=== PATIENT | male | born 1980 | race Caucasian/White ===

== ENCOUNTER 2018-06-12 16:30 | Emergency (ER) | payer MEDICAID ==
[~2018-06-12] VITALS: Ht 182.9 cm; Wt 92.0 kg
[~2018-06-12 16:30] MED LIST: FLO0.4C PO; NO HOME MEDS
[2018-06-12 16:48] VITALS: BP 158/95
[2018-06-12 17:17] LABS: BASOPHILS % (AUTO) 0.1 % (0-1); EOSINOPHILS # (AUTO) 0.1 X10'3 (0-0.9); EOSINOPHILS % (AUTO) 0.9 % (0-6); HEMATOCRIT 51.3 % (42.0-52.0); HEMOGLOBIN 17.7 g/dl (14.0-17.9); LYMPHOCYTES # (AUTO) 2.5 X10'3 (1.1-4.8); LYMPHOCYTES % (AUTO) 26.9 % (21-51); MEAN CORPUSCULAR HEMOGLOBIN 33.2 PG (27.0-31.0); MEAN CORPUSCULAR HGB CONC 34.4 % (33.0-36.5); MEAN CORPUSCULAR VOLUME 96.5 FL (78-98); MEAN PLATELET VOLUME 7.8 FL (7.4-10.4); MONOCYTES # (AUTO) 0.8 X10'3 (0-0.9); MONOCYTES % (AUTO) 8.6 % (2-12); NEUTROPHILS # (AUTO) 5.8 X10'3 (1.8-7.7); NEUTROPHILS % (AUTO) 63.5 % (42-75); PLATELET COUNT 240 X10'3 (140-440); RED BLOOD COUNT 5.32 X10'6 (4.70-6.10); RED CELL DISTRIBUTION WIDTH 15.1 % (11.5-14.5); WHITE BLOOD COUNT 9.2 X10'3 (4.5-11.0)
[2018-06-12 17:32] LABS: ALANINE AMINOTRANSFERASE 102 U/L (12-78); ALBUMIN 4.8 G/DL (3.4-5.0); ALBUMIN/GLOBULIN RATIO 1.1 (1.1-1.5); ALKALINE PHOSPHATASE 64 IU/L (46-116); ANION GAP 16 (8-16); ASPARTATE AMINO TRANSFERASE 56 U/L (10-37); BLOOD UREA NITROGEN 9 MG/DL (7-18); CALCIUM 9.8 MG/DL (8.5-10.1); CHLORIDE 99 MMOL/L (99-107); CREATININE 1.12 MG/DL (0.60-1.10); GLUCOSE 81 MG/DL (70-104); LIPASE 289 U/L (73-393); POTASSIUM 3.2 MMOL/L (3.5-5.1); SODIUM 141 MMOL/L (135-145); TOTAL CARBON DIOXIDE 26.2 MMOL/L (24-32); eGFR 74 ML/MIN
[2018-06-12] MEDS ORDERED: LORA-269 PO (17:41)
[2018-06-18] MEDS ORDERED: ONDA8TAB9 PO (15:40)
== END 2018-06-12 18:08 | disposition home or self-care (01) ==
LOC: ER 16:31
DX: F10.10 Alcohol abuse, uncomplicated (principal); R74.0 Nonspecific elevation of levels of transaminase and lactic acid dehydrogenase [LDH]; Z72.89 Other problems related to lifestyle; F15.90 Other stimulant use, unspecified, uncomplicated; J45.909 Unspecified asthma, uncomplicated; G89.29 Other chronic pain; Z88.1 Allergy status to other antibiotic agents; Z88.8 Allergy status to other drugs, medicaments and biological substances; Z79.899 Other long term (current) drug therapy; Z56.0 Unemployment, unspecified
CPT/HCPCS: 36415; 80053; 83690; 85025; 99284

== ENCOUNTER 2018-06-22 11:20 | Emergency (ER) | payer MEDICAID ==
[~2018-06-22] VITALS: Ht 182.9 cm; Wt 90.0 kg
[~2018-06-22 11:20] MED LIST changes: +LORA-269 PO; +ONDA8TAB9 PO
[2018-06-22 11:40] VITALS: BP 148/91
[2018-06-22] MEDS ORDERED: magnesium citrate 296ml oral solution PO ONE (12:00)
[2018-06-22] MEDS ORDERED: lactulose 20gm/30ml cup PO ONE (12:10)
[2018-06-22] MEDS ORDERED: POLY255P2 PO (12:12)
[2018-06-22] MEDS ORDERED: acetaminophen 325mg tablet PO ONE (12:15)
== END 2018-06-22 12:37 | disposition home or self-care (01) ==
LOC: ER 11:21
DX: K59.00 Constipation, unspecified (principal); J45.909 Unspecified asthma, uncomplicated; G89.29 Other chronic pain; F15.90 Other stimulant use, unspecified, uncomplicated; F17.210 Nicotine dependence, cigarettes, uncomplicated; Z56.0 Unemployment, unspecified; Z87.442 Personal history of urinary calculi; Z87.11 Personal history of peptic ulcer disease; Z88.5 Allergy status to narcotic agent; Z88.8 Allergy status to other drugs, medicaments and biological substances; Z79.899 Other long term (current) drug therapy
CPT/HCPCS: 99284

== ENCOUNTER 2018-07-08 11:08 | Emergency (ER) | payer MEDICAID ==
[~2018-07-08] VITALS: Ht 182.9 cm; Wt 91.8 kg
[~2018-07-08 11:08] MED LIST changes: +POLY255P2 PO
[2018-07-08] MEDS ORDERED: LIDOcaine 1%/PF 5ML 10 MG/ML VIAL IJ ONE (11:30)
[2018-07-08] MEDS ORDERED: CEPH500C5 PO (11:33)
[2018-07-08] MEDS ORDERED: GABA-532 PO (12:10)
[2018-07-08] MEDS ORDERED: MAGN454C TOP (12:14)
[2018-07-08 12:23] VITALS: BP 146/108
== END 2018-07-08 12:24 | disposition home or self-care (01) ==
LOC: ER 11:09
DX: L02.511 Cutaneous abscess of right hand (principal); J45.909 Unspecified asthma, uncomplicated; G89.29 Other chronic pain; F15.90 Other stimulant use, unspecified, uncomplicated; F10.10 Alcohol abuse, uncomplicated; Z86.19 Personal history of other infectious and parasitic diseases; Z56.0 Unemployment, unspecified; Z88.1 Allergy status to other antibiotic agents; Z88.8 Allergy status to other drugs, medicaments and biological substances; Z79.2 Long term (current) use of antibiotics; Z79.899 Other long term (current) drug therapy; Y90.9 Presence of alcohol in blood, level not specified
CPT/HCPCS: 26010; 87070; 87077; 87186; 99284; A6255; A6449; J2001

== ENCOUNTER 2019-04-15 13:16 | Emergency (ER) | payer MEDICAID ==
[~2019-04-15] VITALS: Ht 182.9 cm; Wt 79.5 kg
[~2019-04-15 13:16] MED LIST changes: +CEPH500C5 PO; +GABA-532 PO; +MAGN454C TOP; +POLY255P19 PO; -POLY255P2 PO
[2019-04-15 13:19] VITALS: BP 136/93
== END 2019-04-15 13:36 | disposition home or self-care (01) ==
LOC: ER 13:17
DX: F10.10 Alcohol abuse, uncomplicated (principal); J45.909 Unspecified asthma, uncomplicated; G89.29 Other chronic pain; F41.9 Anxiety disorder, unspecified; F31.9 Bipolar disorder, unspecified; F15.90 Other stimulant use, unspecified, uncomplicated; Z56.0 Unemployment, unspecified; Z86.19 Personal history of other infectious and parasitic diseases; Z87.442 Personal history of urinary calculi; Z88.1 Allergy status to other antibiotic agents; Z88.8 Allergy status to other drugs, medicaments and biological substances; Z79.899 Other long term (current) drug therapy; Y90.9 Presence of alcohol in blood, level not specified
CPT/HCPCS: 99281

== ENCOUNTER 2021-08-02 22:41 | Emergency (ER) | payer MEDICAID ==
[~2021-08-02] VITALS: Ht 182.9 cm; Wt 79.5 kg
[~2021-08-02 22:41] MED LIST changes: -CEPH500C5 PO
[2021-08-02 23:05] VITALS: BP 140/94
[2021-08-03] MEDS ORDERED: LORazepam 1 MG tablet PO ONE (00:10)
[2021-08-03] MEDS ORDERED: CHLO25CA10 PO ×2 (00:11→23:31)
--- NOTE | 2021-08-03 00:41 | NUR ---
pt reports having ores on legs and needs more antibiotics. md mares aware.
[2021-08-03] MEDS ORDERED: QUET200T PO (00:47)
[2021-08-03] MEDS ORDERED: CEPH-585 PO ×2 (00:47→01:02)
[2021-08-03] MEDS ORDERED: QUET400T PO ×2 (01:02→23:31)
== END 2021-08-03 01:00 | disposition home or self-care (01) ==
LOC: ER 22:42
DX: F10.239 Alcohol dependence with withdrawal, unspecified (principal); J45.909 Unspecified asthma, uncomplicated; F31.9 Bipolar disorder, unspecified; G89.29 Other chronic pain; F15.10 Other stimulant abuse, uncomplicated; F11.10 Opioid abuse, uncomplicated; Z88.8 Allergy status to other drugs, medicaments and biological substances; Z88.1 Allergy status to other antibiotic agents; Z79.899 Other long term (current) drug therapy; Z88.5 Allergy status to narcotic agent
CPT/HCPCS: 99283

== ENCOUNTER 2021-08-03 14:35 | Emergency (ER) | payer MEDICAID ==
[~2021-08-03] VITALS: Ht 177.8 cm; Wt 86.4 kg
[~2021-08-03 14:35] MED LIST changes: +CEPH-585 PO; +CHLO25CA10 PO; +QUET200T PO; +QUET400T PO
[2021-08-03] MEDS ORDERED: phenobarbital inj 260 MG in normal saline 100ml IV soln 98 ML IV ONE (18:30)
[2021-08-03] MEDS ORDERED: magnesium 2GM in 50ml NS 50 ML IV ONE (18:30)
[2021-08-03] MEDS ORDERED: normal saline 1000ML IV soln IVB ONE (18:30)
[2021-08-03] MEDS ORDERED: ondansetron/PF 4mg/2ml inj IV ONE (18:30)
[2021-08-03] MEDS ORDERED: thiamine inj. 100 MG in normal saline 100ml IV soln 99 ML IV ONE (18:30)
[2021-08-03] MEDS ORDERED: thiamine inj. 100 MG in normal saline 100ml IV soln 100 ML IV ONE (18:37)
[2021-08-03 19:56] LABS: BASOPHILS % (AUTO) 0.8 % (0-1); EOSINOPHILS % (AUTO) 0.2 % (0-6); HEMATOCRIT 38.5 % (42.0-52.0); HEMOGLOBIN 13.2 g/dl (14.0-17.9); LYMPHOCYTES # (AUTO) 1.5 X10'3 (1.1-4.8); LYMPHOCYTES % (AUTO) 33.2 % (21-51); MEAN CORPUSCULAR HEMOGLOBIN 31.5 PG (27.0-31.0); MEAN CORPUSCULAR HGB CONC 34.2 g/dL (33.0-36.5); MEAN CORPUSCULAR VOLUME 92.2 FL (78-98); MEAN PLATELET VOLUME 6.6 FL (7.4-10.4); MONOCYTES # (AUTO) 0.4 X10'3 (0-0.9); MONOCYTES % (AUTO) 8.1 % (2-12); NEUTROPHILS # (AUTO) 2.6 X10'3 (1.8-7.7); NEUTROPHILS % (AUTO) 57.7 % (42-75); PLATELET COUNT 173 X10'3 (140-440); RED BLOOD COUNT 4.17 X10'6 (4.70-6.10); RED CELL DISTRIBUTION WIDTH 15.1 % (11.5-14.5); WHITE BLOOD COUNT 4.4 X10'3 (4.5-11.0)
[2021-08-03] MEDS ORDERED: phenobarbital inj 130 MG in normal saline 100ml IV soln 99 ML IV ONE (20:00)
[2021-08-03 20:09] LABS: ALANINE AMINOTRANSFERASE 114 U/L (12-78); ALBUMIN 3.6 G/DL (3.4-5.0); ALBUMIN/GLOBULIN RATIO 0.9 (1.1-1.5); ALKALINE PHOSPHATASE 75 IU/L (46-116); ANION GAP 12 (8-16); ASPARTATE AMINO TRANSFERASE 105 U/L (10-37); BILIRUBIN,TOTAL 0.6 MG/DL (0.1-1.0); BLOOD UREA NITROGEN 16 MG/DL (7-18); BUN/CREATININE RATIO 19.8 (5.4-32.0); CALCIUM 8.3 MG/DL (8.5-10.1); CHLORIDE 105 MMOL/L (99-107); CREATININE 0.81 MG/DL (0.60-1.10); ETHANOL 0.043 GM/DL (0.0-0.010); GLUCOSE 124 MG/DL (70-104); MAGNESIUM 1.8 MG/DL (1.5-2.4); SODIUM 141 MMOL/L (135-145); TOTAL CARBON DIOXIDE 24.1 MMOL/L (24-32); TOTAL PROTEIN 7.6 G/DL (6.4-8.2); eGFR > 90 ML/MIN
[2021-08-03] MEDS ORDERED: potassium Cl 20 mEq SR tablet PO STA (20:34)
[2021-08-03 22:16] VITALS: BP 128/79
[2021-08-03] MEDS ORDERED: CHLO25CA10 PO (23:31)
[2021-08-03] MEDS ORDERED: QUET400T PO (23:31)
[2021-08-03] MEDS ORDERED: LORazepam 1 MG tablet PO ONE (23:35)
[2021-08-04] MEDS ORDERED: LORazepam 1 MG tablet PO ONE (00:05)
== END 2021-08-04 01:18 | disposition home or self-care (01) ==
LOC: ER 14:35
DX: F10.239 Alcohol dependence with withdrawal, unspecified (principal); E87.6 Hypokalemia; J45.909 Unspecified asthma, uncomplicated; G89.29 Other chronic pain; F41.9 Anxiety disorder, unspecified; F31.9 Bipolar disorder, unspecified; F15.90 Other stimulant use, unspecified, uncomplicated; F11.90 Opioid use, unspecified, uncomplicated; F19.90 Other psychoactive substance use, unspecified, uncomplicated; Z86.19 Personal history of other infectious and parasitic diseases; Z87.11 Personal history of peptic ulcer disease; Z87.442 Personal history of urinary calculi; Z72.89 Other problems related to lifestyle; Z98.890 Other specified postprocedural states; Z56.0 Unemployment, unspecified; Z88.1 Allergy status to other antibiotic agents; Z88.8 Allergy status to other drugs, medicaments and biological substances; Z79.2 Long term (current) use of antibiotics; Z79.899 Other long term (current) drug therapy; Y90.0 Blood alcohol level of less than 20 mg/100 ml
CPT/HCPCS: 36415; 80053; 80320; 82948; 83735; 85025; 93005; 96365; 96366; 96375; 99284; J2405; J2560; J3411; J7030

== ENCOUNTER 2021-11-10 13:03 | Emergency (ER) | payer MEDICAID ==
[~2021-11-10] VITALS: Ht 182.9 cm; Wt 74.5 kg
[2021-11-10 13:42] VITALS: BP 144/95
[2021-11-10] MEDS ORDERED: quetiapine 100mg tablet PO ONE (13:55)
[2021-11-10] MEDS ORDERED: OLANZapine 2.5MG tablet PO ONE (13:55)
[2021-11-10 14:16] LABS: BASOPHILS # (AUTO) 0.1 X10'3 (0-0.2); BASOPHILS % (AUTO) 0.5 % (0-1); EOSINOPHILS % (AUTO) 0.2 % (0-6); HEMOGLOBIN 14.3 g/dl (14.0-17.9); LYMPHOCYTES % (AUTO) 16.9 % (21-51); MEAN CORPUSCULAR HEMOGLOBIN 31.3 PG (27.0-31.0); MEAN CORPUSCULAR HGB CONC 34.2 g/dL (33.0-36.5); MEAN CORPUSCULAR VOLUME 91.5 FL (78-98); MEAN PLATELET VOLUME 6.9 FL (7.4-10.4); MONOCYTES # (AUTO) 0.8 X10'3 (0-0.9); MONOCYTES % (AUTO) 6.5 % (2-12); NEUTROPHILS # (AUTO) 9.2 X10'3 (1.8-7.7); NEUTROPHILS % (AUTO) 75.9 % (42-75); PLATELET COUNT 319 X10'3 (140-440); RED BLOOD COUNT 4.59 X10'6 (4.70-6.10); RED CELL DISTRIBUTION WIDTH 14.7 % (11.5-14.5); WHITE BLOOD COUNT 12.1 X10'3 (4.5-11.0)
--- NOTE | 2021-11-10 14:29 | NUR ---
PT WAS PLACED ON A 179 HOLD. PT HAS HIS DOG WITH HIM AND [facility] WAS CALLED FOR ASSISTANCE. PT'S DOG WILL BE PICKED UP SOMETIME THIS AFTERNOON AND HOUSED FOR 30 DAYS WHILE PT IS HOSPITALIZED. WHEN PT IS DC HE CAN GO TO [facility] TO PICK HIS DOG UP. PT HAS BEEN MADE AWARE.
[2021-11-10 14:30] LABS: ALANINE AMINOTRANSFERASE 82 U/L (12-78); ALBUMIN 4.1 G/DL (3.4-5.0); ALKALINE PHOSPHATASE 62 IU/L (46-116); ANION GAP 12 (8-16); ASPARTATE AMINO TRANSFERASE 42 U/L (10-37); BILIRUBIN,TOTAL 0.6 MG/DL (0.1-1.0); BLOOD UREA NITROGEN 19 MG/DL (7-18); BUN/CREATININE RATIO 12.7 (5.4-32.0); CALCIUM 9.6 MG/DL (8.5-10.1); CHLORIDE 102 MMOL/L (99-107); GLUCOSE 100 MG/DL (70-104); POTASSIUM 3.1 MMOL/L (3.5-5.1); SODIUM 141 MMOL/L (135-145); TOTAL CARBON DIOXIDE 26.8 MMOL/L (24-32); TOTAL PROTEIN 8.2 G/DL (6.4-8.2); eGFR 52 ML/MIN
[2021-11-10 14:38] LABS: ETHANOL < 0.010 GM/DL (0.0-0.010)
[2021-11-10] MEDS: potassium Cl 20 mEq SR tablet PO STA ×2 (14:52→15:06)
--- NOTE | 2021-11-10 15:00 | NUR ---
Med K-dur administered. Pt spit meds out stating med is not potassium.
--- NOTE | 2021-11-10 15:08 | NUR ---
Pt became uncooperative and unwilling to participate in plan of care. Pt starting ranting that he was "unimpressed" with services and he is going to leave as he'd rather "get stone".
== END 2021-11-10 15:02 | disposition left against medical advice (07) ==
LOC: ER 13:04
DX: U07.1 COVID-19 (principal); F29 Unspecified psychosis not due to a substance or known physiological condition; F25.0 Schizoaffective disorder, bipolar type; F60.0 Paranoid personality disorder; G89.29 Other chronic pain; F41.9 Anxiety disorder, unspecified; F15.90 Other stimulant use, unspecified, uncomplicated; F11.90 Opioid use, unspecified, uncomplicated; F19.90 Other psychoactive substance use, unspecified, uncomplicated; Z86.19 Personal history of other infectious and parasitic diseases; Z87.11 Personal history of peptic ulcer disease; Z87.442 Personal history of urinary calculi; Z98.890 Other specified postprocedural states; Z72.89 Other problems related to lifestyle; Z56.0 Unemployment, unspecified; Z88.1 Allergy status to other antibiotic agents; Z88.8 Allergy status to other drugs, medicaments and biological substances; Z79.2 Long term (current) use of antibiotics; Z79.899 Other long term (current) drug therapy
CPT/HCPCS: 36415; 80053; 80320; 84443; 85025; 87635; 99283; C9803